=== PATIENT | female | born 1990 | race Caucasian/White ===

== ENCOUNTER 2023-12-07 08:54 | Emergency (ER) | payer OTHER ==
[2023-12-07] MEDS ORDERED: PROPARACAINE 0.5% OPHTH DROPS 15 ML BTL RIGHT EYE STA (08:59)
[2023-12-07] MEDS ORDERED: FLUORESCEIN STRIPS 1 MG STRIP RIGHT EYE ONE (08:59)
[2023-12-07] MEDS ORDERED: TOBRAMYCIN 0.3% OPHTH DROPS 5 ML BTL RIGHT EYE STA (09:23)
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
[2023-12-07 09:33] VITALS: BP 137/86; PULSE 78; RESP 18; TEMP 97.9
== END 2023-12-07 09:32 | disposition home or self-care (01) ==
LOC: EC 08:54
DX: H10.9 Unspecified conjunctivitis (principal); Z88.2 Allergy status to sulfonamides; Z88.1 Allergy status to other antibiotic agents
CPT/HCPCS: 99283